=== PATIENT | male | born 1970 | race Caucasian/White ===

== ENCOUNTER → 2017-06-03 | Outpatient (REF) | payer BC ==
[2017-06-03 12:38] LABS: HEMATOCRIT 50.9 % (42.0-52.0); HEMOGLOBIN 17.5 g/dl (14.0-18.0); MEAN CORPUSCULAR HEMOGLOBIN 31.3 pg (27.0-33.0); MEAN CORPUSCULAR HGB CONC 34.4 g/dl (32.0-36.5); MEAN CORPUSCULAR VOLUME 91.1 fl (80.0-96.0); PLATELET COUNT, AUTOMATED 232 10^3/uL (150-450); RED BLOOD COUNT 5.59 10^6/uL (4.30-6.10); RED CELL DISTRIBUTION WIDTH 13.4 % (11.5-14.5); WHITE BLOOD COUNT 6.7 10^3/uL (4.0-10.0)
[2017-06-03 13:16] LABS: ALBUMIN/GLOBULIN RATIO 1.14 (1.00-1.93); ALKALINE PHOSPHATASE 95 U/L (45-117); ALT/SGPT 79 U/L (12-78); ANION GAP 5 MEQ/L (8-16); AST/SGOT 37 U/L (7-37); BILIRUBIN,TOTAL 0.9 MG/DL (0.2-1.0); BLOOD UREA NITROGEN 10 MG/DL (7-18); CALCIUM LEVEL 8.9 MG/DL (8.5-10.1); CARBON DIOXIDE LEVEL 30 MEQ/L (21-32); CHLORIDE LEVEL 104 MEQ/L (98-107); CHOLESTEROL LEVEL 261 MG/DL (<200); CHOLESTEROL RISK RATIO 4.578 (<5); GLOMERULAR FILTRATION RATE > 60.0 (>60); GLUCOSE, FASTING 115 MG/DL (70-100); HDL CHOLESTEROL 57 MG/DL (>40); LDL CHOLESTEROL 180.6 MG/DL (<100); NON-HDL-C 204 MG/DL; POTASSIUM SERUM 4.3 MEQ/L (3.5-5.1); SODIUM LEVEL 139 MEQ/L (136-145); TOTAL PROTEIN 7.5 GM/DL (6.4-8.2); TRIGLYCERIDES LEVEL 117 MG/DL (<150)
== END ==
LOC: M SFHCADAM 11:12
DX: E78.4 Other hyperlipidemia (principal); I10 Essential (primary) hypertension; F17.200 Nicotine dependence, unspecified, uncomplicated; K21.9 Gastro-esophageal reflux disease without esophagitis
CPT/HCPCS: 80053

== ENCOUNTER → 2017-10-19 | Outpatient (CLI) | payer BC ==
[~2017-10-19] MED LIST: GASTROGRAFIN SOLUTION 30ML (Q9963) As Ordered; ISOVUE-370 76% 100ML VIAL (Q9967) As Ordered
== END ==
LOC: M RAD 09:20
DX: K52.9 Noninfective gastroenteritis and colitis, unspecified (principal)
CPT/HCPCS: Q9963

== ENCOUNTER → 2017-10-19 | Outpatient (CLI) | payer BC ==
[2017-10-19 13:03] LABS: BASO % 0.3 % (0.0-1.0); EOS # 0.1 10^3/uL (0.0-0.50); EOS % 0.7 % (0.0-3.0); HEMATOCRIT 49.5 % (42.0-52.0); HEMOGLOBIN 17.4 g/dl (13.5-17.5); IMMATURE GRANULOCYTE % 0.5 % (0-3.0); LYMPH % 9.4 % (24.0-44.0); MEAN CORPUSCULAR HEMOGLOBIN 32.1 pg (27.0-33.0); MEAN CORPUSCULAR HGB CONC 35.2 g/dl (32.0-36.5); MEAN CORPUSCULAR VOLUME 91.3 fl (80.0-96.0); MONO # 0.8 10^3/uL (0.0-0.8); MONO % 7.5 % (0.0-5.0); NEUTROPHILS # 8.4 10^3/uL (1.8-7.7); NEUTROPHILS % 81.6 % (36.0-66.0); PLATELET COUNT, AUTOMATED 205 10^3/uL (150-450); RED BLOOD COUNT 5.42 10^6/uL (4.30-6.10); RED CELL DISTRIBUTION WIDTH 12.6 % (11.5-14.5); WHITE BLOOD COUNT 10.3 10^3/uL (4.0-10.0)
[2017-10-19 13:25] LABS: ALBUMIN 3.7 GM/DL (3.2-5.2); ALKALINE PHOSPHATASE 108 U/L (45-117); ALT/SGPT 49 U/L (12-78); AMYLASE 23 U/L (25-115); ANION GAP 11 MEQ/L (8-16); AST/SGOT 18 U/L (7-37); BILIRUBIN,TOTAL 0.8 MG/DL (0.2-1.0); BLOOD UREA NITROGEN 16 MG/DL (7-18); CALCIUM LEVEL 8.6 MG/DL (8.5-10.1); CARBON DIOXIDE LEVEL 24 MEQ/L (21-32); CHLORIDE LEVEL 98 MEQ/L (98-107); CREATININE FOR GFR 1.23 MG/DL (0.70-1.30); GLOMERULAR FILTRATION RATE > 60.0 (>60); GLUCOSE, FASTING 108 MG/DL (70-100); LIPASE 170 U/L (73-393); POTASSIUM SERUM 3.5 MEQ/L (3.5-5.1); SODIUM LEVEL 133 MEQ/L (136-145); TOTAL PROTEIN 7.4 GM/DL (6.4-8.2)
== END ==
LOC: M ADAMS 08:20
DX: A09 Infectious gastroenteritis and colitis, unspecified (principal); R10.9 Unspecified abdominal pain
CPT/HCPCS: 82150

== ENCOUNTER → 2019-08-02 | Outpatient (REF) | payer BC ==
[2019-08-02 10:42] LABS: HEMATOCRIT 51.5 % (42.0-52.0); HEMOGLOBIN 17.4 g/dl (13.5-17.5); MEAN CORPUSCULAR HEMOGLOBIN 30.6 pg (27.0-33.0); MEAN CORPUSCULAR HGB CONC 33.8 g/dl (32.0-36.5); MEAN CORPUSCULAR VOLUME 90.7 fl (80.0-96.0); PLATELET COUNT, AUTOMATED 228 10^3/uL (150-450); RED BLOOD COUNT 5.68 10^6/uL (4.30-6.10); WHITE BLOOD COUNT 6.8 10^3/uL (4.0-10.0)
[2019-08-02 11:16] LABS: ALBUMIN 3.9 GM/DL (3.2-5.2); ALT/SGPT 75 U/L (12-78); BILIRUBIN,TOTAL 0.9 MG/DL (0.2-1.0); BLOOD UREA NITROGEN 8 MG/DL (7-18); CALCIUM LEVEL 9.5 MG/DL (8.5-10.1); CARBON DIOXIDE LEVEL 29 MEQ/L (21-32); CHLORIDE LEVEL 103 MEQ/L (98-107); CHOLESTEROL LEVEL 271 MG/DL (<200); CHOLESTEROL RISK RATIO 6.775 (<5); CREATININE FOR GFR 0.91 MG/DL (0.70-1.30); GLOMERULAR FILTRATION RATE > 60.0 (>60); GLUCOSE, FASTING 88 MG/DL (70-100); HDL CHOLESTEROL 40 MG/DL (>40); LDL CHOLESTEROL 191 MG/DL (<100); NON-HDL-C 231 MG/DL; POTASSIUM SERUM 4.2 MEQ/L (3.5-5.1); SODIUM LEVEL 135 MEQ/L (136-145); TOTAL PROTEIN 7.8 GM/DL (6.4-8.2); TRIGLYCERIDES LEVEL 200 MG/DL (<150)
[2019-08-02 11:25] LABS: MAU/CREAT RATIO 59.1 MCG/MG (0.0-30.0)
== END ==
LOC: M SFHCADAM 08:13
PROVIDERS: ATTEND Physician Assistant
DX: L71.9 Rosacea, unspecified (principal); Z72.0 Tobacco use; I10 Essential (primary) hypertension; K21.9 Gastro-esophageal reflux disease without esophagitis; Z13.220 Encounter for screening for lipoid disorders

== ENCOUNTER → 2020-05-22 | Outpatient (REF) | payer BC, OTHER ==
[2020-05-22 12:44] LABS: HEMATOCRIT 48.2 % (42.0-52.0); MEAN CORPUSCULAR HEMOGLOBIN 31.4 pg (27.0-33.0); MEAN CORPUSCULAR HGB CONC 33.2 g/dl (32.0-36.5); MEAN CORPUSCULAR VOLUME 94.7 fl (80.0-96.0); PLATELET COUNT, AUTOMATED 264 10^3/uL (150-450); RED BLOOD COUNT 5.09 10^6/uL (4.30-6.10); WHITE BLOOD COUNT 7.2 10^3/uL (4.0-10.0)
[2020-05-22 13:45] LABS: ALT/SGPT 53 U/L (12-78); BLOOD UREA NITROGEN 15 MG/DL (7-18); CALCIUM LEVEL 9.6 MG/DL (8.5-10.1); CARBON DIOXIDE LEVEL 33 MEQ/L (21-32); CHLORIDE LEVEL 99 MEQ/L (98-107); CHOLESTEROL LEVEL 263 MG/DL (<200); CHOLESTEROL RISK RATIO 5.367 (<5); CREATININE FOR GFR 1.06 MG/DL (0.70-1.30); FREE T4 0.96 NG/DL (0.76-1.46); GLOMERULAR FILTRATION RATE > 60.0 (>60); GLUCOSE, FASTING 84 MG/DL (70-100); HDL CHOLESTEROL 49 MG/DL (>40); LDL CHOLESTEROL 186 MG/DL (<100); NON-HDL-C 214 MG/DL; POTASSIUM SERUM 3.8 MEQ/L (3.5-5.1); SODIUM LEVEL 136 MEQ/L (136-145); TOTAL PROTEIN 7.6 GM/DL (6.4-8.2); TRIGLYCERIDES LEVEL 140 MG/DL (<150)
== END ==
LOC: M SFHCADAM 07:56
PROVIDERS: ATTEND Physician Assistant
DX: E78.5 Hyperlipidemia, unspecified (principal); I10 Essential (primary) hypertension; F17.200 Nicotine dependence, unspecified, uncomplicated

== ENCOUNTER → 2020-06-01 | Outpatient (CLI) | payer SELFPAY | LOC: M LABSMTC 10:56 | PROVIDERS: ATTEND Pediatrics | DX: Z20.822 Contact with and (suspected) exposure to COVID-19 (principal) ==

== ENCOUNTER 2021-03-08 14:12 | Emergency (ER) | payer BC, OTHER ==
[~2021-03-08] VITALS: Ht 177.8 cm; Wt 104.5 kg
--- OUTSIDE RECORDS SUMMARY | 2021-03-08 14:18 | CCD ---
Author Author [facility] Organization [facility] Address Unknown Phone Unavailable Care Team Providers Care [employer] Press Set Up Operator Name Role Phone Alistair Connie Unavailable PROBLEMS Type Condition ICD9-CM Code [id number] Code Onset Dates Condition S tatus W/U Status Risk SNOMED Code Notes Problem Hyperlipidemia 272.4 Active confirmed 62025 004 Problem Other hyperlipidemia E78.4 Active confirmed 23967174 Problem Gastro-esophageal reflux disease without esophagitis K21.9 Active confirmed 947343134 Problem Hyperlipidemia, unspecified E78.5 Active confirmed 93368028 Problem Tobacco abuse 305.1 Active confirmed 316917 05 Problem Excessive drinking alcohol F10.10 Active confirmed 148320125 Problem Hypertension 401.9 Active confirmed 7941343 3 Problem Essential (primary) hypertension I10 Active conf irmed 34066839 Problem Nicotine dependence, unspecified, uncomplicated F1 7.200 Active confirmed 767420117 Problem Scalp lesion L98.9 Active confirmed 3937669 17593 Problem Rosacea L71.9 Active confirmed 589135232 ALLERGIES Allergen (clinical drug ingredient) Drug/Non Drug Allergy do cumented on EMR Reaction Allergy Type Onset Date Status amlodipine AmLODIPine Besylate([facility] Code:[address]-09) rash Tello g Allergy Active ENCOUNTERS from 1972 to 2020-12-11 Encounter Location Date Provider Diagnosis [facility] [address] [place] [address] Nov, Connie Sainz IMMUNIZATIONS No Information SOCIAL HISTORY Tobacco Use: Social History Observation Description Date Details (start date - stop date) Current Smoker Sex Assigned At : Social History Observation Description Sex Assigned At Unknown Audit Question Answer Notes Total Score: 4 Interpretation: Alcohol Education Drug and Alcohol Question Answer Notes Total Score: 0 Interpretation: No problems reported BMI Care Goal Follow-Up Question Answer Notes Above Normal BMI Follow-Up Dietary management educatio n, guidance, and counseling Tobacco Use: Question Answer Notes Are you a: current smoker 08/28/20 How many cigarettes a day do you smoke? 6-10 Are you interested in quitting? Ready to quit REASON FOR REFERRAL No Information VITAL SIGNS No information MEDICATIONS Medication SIG (Take, Route, Frequency, Duration) Notes Start Da te End Date Status Lisinopril 20 MG TAKE ONE TABLET BY MOUTH EVERY DAY for 30 Active Metrogel 1 % 1 application Externally Once a day to f alda and scalp for 30 days Jun, Not-Taking metroNIDAZOLE 0.75 % 1 application Externally Twi ce a day to affected area on face qand forehead for 30 days Jun, A ctive Azelaic Acid 20 % 1 application Externally Twice a day for 30 days Active Doxycycline Hyclate 100 MG 1 capsule Orally Once a day with food for 30 days Active Chantix Starting Month Markell 0.5 MG X 11 & 1 MG X 42 as directed Orally as directed Jun, Active Omeprazole 40 MG TAKE ONE CAPSULE BY MOUTH EVERY DAY orally Velasquez y for 30 Days Active PROCEDURES No Information RESULTS No Results REASON FOR VISIT no show 12/11/2020 MEDICAL (GENERAL) HISTORY Type Description Date Medical History Hypertension Medical History GERD Medical History Tobacco Abuse Medical History Hyperlipidemia - ASCVD Risk = 6.1% 09/16 Medical History Salmonella 09/2017 Medical History Rosacea Surgical History tonsillectomy Surgical History wisdom teeth extract X 4 Surgical History lasik, bilaterally 08/2007 Surgical History lask, right eye 10/2007 Goals Section No Information Health Concerns No Information MEDICAL EQUIPMENT No Information MENTAL STATUS No Information FUNCTIONAL STATUS No Information ASSESSMENTS No Information PLAN OF TREATMENT Medication Medication Name Sig Start Date Stop Date Lisinopril 20 MG TAKE ONE TABLET BY MOUTH EVERY DAY for 30 Doxycycline Hyclate 100 MG 1 capsule Orally Once a day with food for 30 days Azelaic Acid 20 % 1 application Externally Twice a day for 30 da ys Next Appt Details Provider Name:Brina Huang, 2020-12-23 09:15:00 AM, [address] [facility], [place], [address], Insurance Providers Payer Name Payer Address Payer Phone Insured Name Patient Relati onship to Insured Coverage Start Date Coverage End Date [facility] Drawn to [employer] CLAIM[employer] DEPT [address] [facility] [phone] ML CHOI self
--- OUTSIDE RECORDS SUMMARY | 2021-03-08 14:18 | CCD ---
Author Author [facility] Organization [facility] Address Unknown Phone Unavailable Support Name Relationship Address Phone [employer] Next Of Kin [address] [place] [address] [employer] Next Of Kin [address] [place] [address] SELF EMPLOYED Next Of Kin [address] [place] [address] [place]IN[place] [employer]OMPKINS Next Of Kin [address] [place] [address] ORTIZ TOMPKINS Next Of Kin [address] [place] [address] ORTIZ TOMPKINS ECON [address] [place] [address] Re-disclosure Warning The records that you are about to access may contain information from federally-assisted alcohol or drug abuse programs. If such information is present, then the following federally mandated warning applies: This information has been disclosed to you from records protected by federal confidentiality rules (42 CFR part 2). The federal rules prohibit you from making any further disclosure of this information unless further disclosure is expressly permitted by the written consent of the person to whom it pertains or as otherwise permitted by 42 CFR part 2. A general authorization for the release of medical or other information is NOT sufficient for this purpose. The Federal rules restrict any use of the information to criminally investigate or prosecute any alcohol or drug abuse patient.The records that you are about to access may contain highly sensitive health information, the redisclosure of which is protected by Article 27-F of the [facility] Public Health law. If you continue you may have access to information: Regarding HIV / AIDS; Provided by facilities licensed or operated by the [facility] Office of Mental Health; or Provided by the [facility] Office for People With Developmental Disabilities. If such information is present, then the following [facility] mandated warning applies: This information has been disclosed to you from confidential records which are protected by state law. State law prohibits you from making any further disclosure of this information without the specific written consent of the person to whom it pertains, or as otherwise permitted by law. Any unauthorized further disclosure in violation of state law may result in a fine or senior living sentence or both. A general authorization for the release of medical or other information is NOT sufficient authorization for further disc losure. Family History Family Member Name Family Member Gender Family Member Status Date o f Status Description Data Source(s) Unknown Unknown Problem [facility] ([facility]) Encounters Encounter Providers Location Date Indications Data Source(s ) Unknown [address] [facility] [place] [address] 12/11/2020 12:00:00 AM EDT eCW1 ([facility]) Outpatient [address] [facility] [address] 08/28/2020 12:00:00 AM EDT eCW1 ([facility]) Unknown [address] [facility] [place] [address] 08/07/2020 12:00:00 AM EDT eCW1 ([facility]) Unknown [address] [facility] [place] [address] 07/07/2020 12:00:00 AM EST eCW1 ([facility]) Outpatient [address] [facility] [place] [address] 07/03/2020 12:00:00 AM EST eCW1 ([facility]) Outpatient [address] [facility] [place] [address] 06/24/2020 12:00:00 AM EST eCW1 ([facility]) Unknown [address] [facility] [place] [address] 05/07/2020 12:00:00 AM EST eCW1 ([facility]) Unknown [address] [facility] [place] [address] 02/20/2020 12:00:00 AM EDT eCW1 ([facility]) Medications Medication Brand Name Start Date Product Form Dose Route Admi nistrative Instructions Pharmacy Instructions Status Indications Reaction Description Data Source(s) 40 mg 01/30/2021 12:00:00 AM EDT capsule,delayed release (DR/EC) 30 TAKE ONE CAPSULE BY MOUTH EVERY DAY TAKE ONE CAPSULE BY MOUTH EVERY DAY SOLD: 03/02/2021 [facility] 40 mg 01/30/2021 12:00:00 AM EDT capsule,delayed release (DR/EC) 30 TAKE ONE CAPSULE BY MOUTH EVERY DAY TAKE ONE CAPSULE BY MOUTH EVERY DAY SOLD: 02/03/2021 [facility] 20 mg 10/07/2020 12:00:00 AM EDT tablet 30 TAKE ONE TABLET BY MOUTH ONCE DAILY TAKE ONE TABLET BY MOUTH ONCE DAILY SOLD: 02/03/2021 [facility] 20 mg 10/07/2020 12:00:00 AM EDT tablet 30 TAKE ONE TABLET BY MOUTH ONCE DAILY TAKE ONE TABLET BY MOUTH ONCE DAILY SOLD: 10/08/2020 [facility] 20 mg 10/07/2020 12:00:00 AM EDT tablet 30 TAKE ONE TABLET BY MOUTH ONCE DAILY TAKE ONE TABLET BY MOUTH ONCE DAILY SOLD: 01/04/2021 [facility] 20 mg 10/07/2020 12:00:00 AM EDT tablet 30 TAKE ONE TABLET BY MOUTH ONCE DAILY TAKE ONE TABLET BY MOUTH ONCE DAILY SOLD: 12/08/2020 [facility] 20 mg 10/07/2020 12:00:00 AM EDT tablet 30 TAKE ONE TABLET BY MOUTH ONCE DAILY TAKE ONE TABLET BY MOUTH ONCE DAILY SOLD: 11/08/2020 [facility] 20 mg 10/07/2020 12:00:00 AM EDT tablet 30 TAKE ONE TABLET BY MOUTH ONCE DAILY TAKE ONE TABLET BY MOUTH ONCE DAILY SOLD: 03/02/2021 [facility] Lisinopril 20 MG Oral Tablet LISINOPRIL 09/04/2020 12:00:00 AM EDT tab let 30 TAKE ONE TABLET BY MOUTH EVERY DAY TAKE ONE TABLET BY MOUTH EVERY DAY SOLD: 09/10/2020 [facility] doxycycline hyclate 100 MG Oral Capsule DOXYCYCLINE HYCLATE 08/29/2020 12:00:00 AM EDT capsule 30 TAKE ONE CAPSULE BY MOUTH EV PHI DAY WITH FOOD TAKE ONE CAPSULE BY MOUTH EVERY DAY WITH FOOD SOLD: 09/10/2020 [facility] Azelaic Acid 20 % UNK 08/28/2020 12:00:00 AM EDT 1.0 {applic ation} active Azelaic Acid 20 % eCW1 ([facility]) doxycycline hyclate 100 MG Oral Capsule Doxycycline Hy clate 100 MG Doxycycline Hyclate 100 MG 08/28/2020 12:00:00 AM EDT 1.0 {capsule} active Doxycycline Hyclate 100 MG eCW1 ([facility]) 40 mg 08/08/2020 12:00:00 AM EDT capsule,delayed release (DR/EC) 30 TAKE ONE CAPSULE BY MOUTH EVERY DAY TAKE ONE CAPSULE BY MOUTH EVERY DAY SOLD: 01/04/2021 [facility] 40 mg 08/08/2020 12:00:00 AM EDT capsule,delayed release (DR/EC) 30 TAKE ONE CAPSULE BY MOUTH EVERY DAY TAKE ONE CAPSULE BY MOUTH EVERY DAY SOLD: 12/08/2020 [facility] 40 mg 08/08/2020 12:00:00 AM EDT capsule,delayed release (DR/EC) 30 TAKE ONE CAPSULE BY MOUTH EVERY DAY TAKE ONE CAPSULE BY MOUTH EVERY DAY SOLD: 11/08/2020 [facility] 40 mg 08/08/2020 12:00:00 AM EDT capsule,delayed release (DR/EC) 30 TAKE ONE CAPSULE BY MOUTH EVERY DAY TAKE ONE CAPSULE BY MOUTH EVERY DAY SOLD: 10/08/2020 [facility] 40 mg 08/08/2020 12:00:00 AM EDT capsule,delayed release (DR/EC) 30 TAKE ONE CAPSULE BY MOUTH EVERY DAY TAKE ONE CAPSULE BY MOUTH EVERY DAY SOLD: 08/10/2020 [facility] 40 mg 08/08/2020 12:00:00 AM EDT capsule,delayed release (DR/EC) 30 TAKE ONE CAPSULE BY MOUTH EVERY DAY TAKE ONE CAPSULE BY MOUTH EVERY DAY SOLD: 09/10/2020 [facility] Lisinopril 20 MG Oral Tablet LISINOPRIL 08/06/2020 12:00:00 AM EDT tab let 30 TAKE ONE TABLET BY MOUTH EVERY DAY TAKE ONE TABLET BY MOUTH EVERY DAY SOLD: 08/10/2020 [facility] 0.75 % 07/08/2020 12:00:00 AM EST gel 45 APPLY TO AFFECTED AREA(S) ON FACE AND FOREHEAD TWO TIMES A DAY APPLY TO AFFECTED AREA(S) ON FACE AND FO REHEAD TWO TIMES A DAY SOLD: 07/12/2020 [facility] Metronidazole 0.0075 MG/MG Vaginal Gel metroNIDAZOLE 0 .75 % metroNIDAZOLE 0.75 % 07/08/2020 12:00:00 AM EST 1.0 {application} active metroNIDAZOLE 0.75 % eCW1 ([facility]) Metronidazole 0.0075 MG/MG Vaginal Gel Metronidazole 0 .75 % Metronidazole 0.75 % 07/08/2020 12:00:00 AM EST 1.0 {application} active Metronidazole 0.75 % eCW1 ([facility]) Metronidazole 0.0075 MG/MG Vaginal Gel Metronidazole 0 .75 % Metronidazole 0.75 % 07/08/2020 12:00:00 AM EST 1.0 {application} active Metronidazole 0.75 % eCW1 ([facility]) Metronidazole 0.0075 MG/MG Vaginal Gel Metronidazole 0 .75 % Metronidazole 0.75 % 07/08/2020 12:00:00 AM EST 1.0 {application} active Metronidazole 0.75 % eCW1 ([facility]) Metronidazole 0.01 MG/MG Topical Gel [MetroGel] Metrogel 1 % Metrogel 1 % 07/03/2020 12:00:00 AM EST 1.0 {application} suspend ed Metrogel 1 % eCW1 ([facility]) Metronidazole 0.01 MG/MG Topical Gel [MetroGel] Metrogel 1 % Metrogel 1 % 07/03/2020 12:00:00 AM EST 1.0 {application} active Metrogel 1 % eCW1 ([facility]) Metronidazole 0.01 MG/MG Topical Gel [MetroGel] Metrogel 1 % Metrogel 1 % 07/03/2020 12:00:00 AM EST 1.0 {application} suspend ed Metrogel 1 % eCW1 ([facility]) Metronidazole 0.01 MG/MG Topical Gel [MetroGel] Metrogel 1 % Metrogel 1 % 07/03/2020 12:00:00 AM EST 1.0 {application} active Metrogel 1 % eCW1 ([facility]) Metronidazole 0.01 MG/MG Topical Gel [MetroGel] Metrogel 1 % Metrogel 1 % 07/03/2020 12:00:00 AM EST 1.0 {application} active Metrogel 1 % eCW1 ([facility]) 0.5 mg (11)- 1 mg (42) 06/24/2020 12:00:00 AM EST tablets,do se pack 53 TAKE BY MOUTH DIRECTED TAKE BY MOUTH DIRECTED SOLD: 07/08/2020 [facility] Chantix Starting Month Markell 0.5 MG X 11 & 1 MG X 42 Suzie ntix Starting Month Markell 0.5 MG X 11 & 1 MG X 42 06/24/2020 12:00:00 AM EST active Chantix Starting Month Markell 0.5 MG X 11 & 1 MG X 42 eCW1 ([facility]) Chantix Starting Month Markell 0.5 MG X 11 & 1 MG X 42 Suzie ntix Starting Month Markell 0.5 MG X 11 & 1 MG X 42 06/24/2020 12:00:00 AM EST active Chantix Starting Month Markell 0.5 MG X 11 & 1 MG X 42 eCW1 ([facility]) Chantix Starting Month Markell 0.5 MG X 11 & 1 MG X 42 Suzie ntix Starting Month Markell 0.5 MG X 11 & 1 MG X 42 06/24/2020 12:00:00 AM EST active Chantix Starting Month Markell 0.5 MG X 11 & 1 MG X 42 eCW1 ([facility]) Chantix Starting Month Markell 0.5 MG X 11 & 1 MG X 42 Suzie ntix Starting Month Markell 0.5 MG X 11 & 1 MG X 42 06/24/2020 12:00:00 AM EST active Chantix Starting Month Markell 0.5 MG X 11 & 1 MG X 42 eCW1 ([facility]) Chantix Starting Month Markell 0.5 MG X 11 & 1 MG X 42 Suzie ntix Starting Month Markell 0.5 MG X 11 & 1 MG X 42 06/24/2020 12:00:00 AM EST active Chantix Starting Month Markell 0.5 MG X 11 & 1 MG X 42 eCW1 ([facility]) Chantix Starting Month Markell 0.5 MG X 11 & 1 MG X 42 Suzie ntix Starting Month Markell 0.5 MG X 11 & 1 MG X 42 06/24/2020 12:00:00 AM EST active Chantix Starting Month Markell 0.5 MG X 11 & 1 MG X 42 eCW1 ([facility]) 40 mg 02/05/2020 12:00:00 AM EDT capsule,delayed release (DR/EC) 30 TAKE ONE CAPSULE BY MOUTH EVERY DAY TAKE ONE CAPSULE BY MOUTH EVERY DAY SOLD: 04/13/2020 [facility] 20 mg 02/05/2020 12:00:00 AM EDT tablet 90 TAKE ONE TABLET BY MOUTH EVERY DAY TAKE ONE TABLET BY MOUTH EVERY DAY SOLD: 03/13/2020 [facility] 20 mg 02/05/2020 12:00:00 AM EDT tablet 90 TAKE ONE TABLET BY MOUTH EVERY DAY TAKE ONE TABLET BY MOUTH EVERY DAY SOLD: 07/12/2020 [facility] 40 mg 02/05/2020 12:00:00 AM EDT capsule,delayed release (DR/EC) 30 TAKE ONE CAPSULE BY MOUTH EVERY DAY TAKE ONE CAPSULE BY MOUTH EVERY DAY SOLD: 03/13/2020 [facility] 20 mg 02/05/2020 12:00:00 AM EDT tablet 90 TAKE ONE TABLET BY MOUTH EVERY DAY TAKE ONE TABLET BY MOUTH EVERY DAY SOLD: 05/13/2020 [facility] 20 mg 02/05/2020 12:00:00 AM EDT tablet 90 TAKE ONE TABLET BY MOUTH EVERY DAY TAKE ONE TABLET BY MOUTH EVERY DAY SOLD: 06/13/2020 [facility] 40 mg 02/05/2020 12:00:00 AM EDT capsule,delayed release (DR/EC) 30 TAKE ONE CAPSULE BY MOUTH EVERY DAY TAKE ONE CAPSULE BY MOUTH EVERY DAY SOLD: 07/12/2020 [facility] 40 mg 02/05/2020 12:00:00 AM EDT capsule,delayed release (DR/EC) 30 TAKE ONE CAPSULE BY MOUTH EVERY DAY TAKE ONE CAPSULE BY MOUTH EVERY DAY SOLD: 05/13/2020 [facility] 20 mg 02/05/2020 12:00:00 AM EDT tablet 30 TAKE ONE TABLET BY MOUTH EVERY DAY TAKE ONE TABLET BY MOUTH EVERY DAY SOLD: 02/05/2020 [facility] 40 mg 02/05/2020 12:00:00 AM EDT capsule,delayed release (DR/EC) 30 TAKE ONE CAPSULE BY MOUTH EVERY DAY TAKE ONE CAPSULE BY MOUTH EVERY DAY SOLD: 06/13/2020 [facility] 20 mg 02/05/2020 12:00:00 AM EDT tablet 90 TAKE ONE TABLET BY MOUTH EVERY DAY TAKE ONE TABLET BY MOUTH EVERY DAY SOLD: 04/13/2020 [facility] 40 mg 02/05/2020 12:00:00 AM EDT capsule,delayed release (DR/EC) 30 TAKE ONE CAPSULE BY MOUTH EVERY DAY TAKE ONE CAPSULE BY MOUTH EVERY DAY SOLD: 02/05/2020 [facility] Insurance Providers Payer name Policy type / Coverage type Policy ID Covered constitution party ID Covered constitution party's relationship to hinds Policy Hinds Plan Information [employer] [place]/307 [id number] SP [id number] [employer] [place]/307 [id number] SP [id number] SELF PAY ONLY [id number] SP [id number] ID IDENTIFICATION [id number] Other Insurance [id number] [employer] [place] P[place] 302/307 [id number] SP [id number] [employer]BS B [id number] S [id number] [employer] Commercial [id number] Self [id number] [employer] Commercial [id number] Self [id number] DAMEON [id number] SP [id number] [employer] Commercial [id number] Self [id number] [employer] [place] PPO 302/307 [id number] SP [id number] [employer] Commercial [id number] Self [id number] ID IDENTIFICATION [id number] Other Insurance [id number] BS Exchange(Epo,Hmo,Ppo) Commercial [id number] Self [employer] Commercial [id number] Self [employer] Commercial [id number] Self [id number] Problems, Conditions, and Diagnoses Code Display Name Description Problem Type Effective Dates Data Source(s) F10.10 [id number] Excessive drinking alcohol Problem 12:00:00 AM EST eCW1 ([facility]) E78.5 Hyperlipidemia Hyperlipidemia, unspecified Problem 05/07/2020 12:00:00 AM EST eCW1 ([facility]) Surgeries/Procedures No Information Results ID Date Data Source [id number] 06/01/2020 12:00:00 AM EST [facility] Name Value Range Interpretation Code Description Data Yuly rce(s) Supporting Document(s) SARS-CoV-2 (COVID-19) RNA [Presence] in Respiratory specimen by JENARO with probe detection Not Detected [facility] This lab was ordered by [facility] and reported by [employer] Procedure Social History Code Duration Value Status Description Data Source(s ) Smoking 08/28/2020 12:00:00 AM EDT Current Smoker completed Curre nt Smoker eCW1 ([facility]) Smoking 08/28/2020 12:00:00 AM EDT Current Smoker completed Curre nt Smoker eCW1 ([facility]) Smoking 07/03/2020 12:00:00 AM EST Current Smoker completed Curre nt Smoker eCW1 ([facility]) Smoking 07/03/2020 12:00:00 AM EST Current Smoker completed Curre nt Smoker eCW1 ([facility]) Smoking 07/03/2020 12:00:00 AM EST Current Smoker completed Curre nt Smoker eCW1 ([facility]) Smoking 06/24/2020 12:00:00 AM EST Current Smoker completed Curre nt Smoker eCW1 ([facility]) Vital Signs ID Date Data Source UNK Name Value Range Interpretation Code Description Data Source(s) Systolic blood pressure 142 mm[Hg] 142 mm[Hg] e CW1 ([facility]) Diastolic blood pressure 84 mm[Hg] 84 mm[Hg] eCW1 ([facility]) Body weight 230.6 [lb_av] 230.6 [lb_av] eCW1 ([facility]) Body height 70 [in_i] 70 [in_i] eCW1 ([facility]) Body mass index (BMI) [Ratio] 33.08 kg/m2 33.08 kg/m2 W1 ([facility]) Body weight 233.4 [lb_av] 233.4 [lb_av] eCW1 ([facility]) Body height 70 [in_i] 70 [in_i] eCW1 ([facility]) Heart rate 94 /min 94 /min eCW1 ([facility]) Respiratory rate 16 /min 16 /min eCW1 ([facility]) Body temperature 98.9 [degF] 98.9 [degF] eCW1 ( [facility]) Systolic blood pressure 132 mm[Hg] 132 mm[Hg] e CW1 ([facility]) Diastolic blood pressure 82 mm[Hg] 82 mm[Hg] eCW1 ([facility]) Body mass index (BMI) [Ratio] 33.49 kg/m2 33.49 kg/m2 eCW1 ([facility]) Body weight 233 [lb_av] 233 [lb_av] eCW1 ([facility]) Body height 70 [in_i] 70 [in_i] eCW1 ([facility]) Body mass index (BMI) [Ratio] 33.43 kg/m2 33.43 kg/m2 eCW1 ([facility]) Heart rate 106 /min 106 /min eCW1 ([facility]) Respiratory rate 16 /min 16 /min eCW1 ([facility]) Body temperature 96.3 [degF] 96.3 [degF] eCW1 ( [facility]) Systolic blood pressure 142 mm[Hg] 142 mm[Hg] e CW1 ([facility]) Diastolic blood pressure 90 mm[Hg] 90 mm[Hg] eCW1 ([facility]) Patient Treatment Plan of Care Planned Activity Planned Date Details Description Data Source (s) Azelaic Acid 20 % 08/28/2020 12:00:00 AM EDT eCW1 ([facility]) doxycycline hyclate 100 MG Oral Capsule 08/28/2020 12:00:00 AM EDT eCW1 ([facility]) Metronidazole 0.0075 MG/MG Vaginal Gel 07/08/2020 12:00:00 AM EST eCW1 ([facility]) Metronidazole 0.0075 MG/MG Vaginal Gel 07/08/2020 12:00:00 AM EST eCW1 ([facility]) Metronidazole 0.01 MG/MG Topical Gel [MetroGel] 07/03/2020 12:00:00 AM EST eCW1 ([facility]) Metronidazole 0.01 MG/MG Topical Gel [MetroGel] 07/03/2020 12:00:00 AM EST eCW1 ([facility]) Metronidazole 0.01 MG/MG Topical Gel [MetroGel] 07/03/2020 12:00:00 AM EST eCW1 ([facility]) Chantix Starting Month Markell 0.5 MG X 11 & 1 MG X 42 06/24/2020 12 :00:00 AM EST eCW1 ([facility]) Chantix Starting Month Markell 0.5 MG X 11 & 1 MG X 42 06/24/2020 12 :00:00 AM EST eCW1 ([facility]) Chantix Starting Month Markell 0.5 MG X 11 & 1 MG X 42 06/24/2020 12 :00:00 AM EST eCW1 ([facility]) Chantix Starting Month Markell 0.5 MG X 11 & 1 MG X 42 06/24/2020 12 :00:00 AM EST eCW1 ([facility])
[2021-03-08] MEDS ORDERED: LISI20TA33 PO (14:34)
[2021-03-08] MEDS ORDERED: OMEP-221 PO (14:34)
--- NOTE | 2021-03-08 14:54 | REP ---
INDICATION: trauma, pain, swelling. COMPARISON: None. TECHNIQUE: Four views FINDINGS: The radial head and capitellum align normally on all views. Shows no radial head fracture. Medial and lateral epicondyles were unremarkable and without abnormal calcification. No elbow joint effusion on the lateral view. There is soft tissue swelling over the olecranon that may reflect some olecranon bursitis. A small phlebolith overlying the triceps well above the joint is noted. Distal humerus without fracture. Olecranon and proximal ulna were normal. IMPRESSION: 1. Soft tissue swelling about the elbow that may reflect some traumatic bursitis. I do not see any definite fracture, joint effusion, avulsion fracture nor other acute finding. <Electronically signed by Adi Dubon > 03/08/21 [id number]
--- OUTSIDE RECORDS SUMMARY | 2021-03-08 15:04 | CCD ---
Author Author [facility] Organization [facility] Address Unknown Phone Unavailable Support Name Relationship Address Phone [employer] Next Of Kin [address] [place] [address] SPE[place]RITE Next Of Kin [address] [place] [address] SELF EMPLOYED Next Of Kin [address] [place] [address] TRINIDAD TOMPKINS Next Of Kin [address] [place] [address] ORTIZ TOMPKINS Next Of Kin [address] [place] [address] ORTIZ TOMPKINS [address] [place] [address] Re-disclosure Warning The records that you are [...] is protected by Article 27-F of the [facility] Public Health law. If you continue you may have access to information: Regarding HIV / AIDS; Provided by facilities licensed or operated by the [facility] Office of Mental Health; or Provided by the [facility] Office for People With Developmental Disabilities. If such information is present, then the following [place] State mandated warning applies: This information has been [...] law may result in a fine or intermediate sentence or both. A general authorization for the release of medical or other information is NOT sufficient authorization for further disc losure. Family History Family Member Name Family Member Gender Family Member Status Date o f Status Description Data Source(s) Unknown Unknown Problem [facility] ([facility]) Encounters Encounter Providers Location Date Indications Data Source(s ) Unknown [address] [facility] [place] [id number] 12/11/2020 12:00:00 AM EDT eCW1 ([facility]) Outpatient [address] [facility] [id number] 08/28/2020 12:00:00 AM EDT eCW1 ([facility]) Unknown [address] [facility] [place] [id number] 08/07/2020 12:00:00 AM EDT eCW1 ([facility]) Unknown [address] [facility] [id number] 07/07/2020 12:00:00 AM EST eCW1 ([facility]) Outpatient [address] [facility] [place] [id number] 07/03/2020 12:00:00 AM EST eCW1 [facility] Outpatient [address] [facility] [address] 06/24/2020 12:00:00 AM EST eCW1 ([facility]) Unknown [address] [facility] [place] [address] 05/07/2020 12:00:00 AM EST eCW1 ([facility]) Unknown [address] [facility] [place] [id number] 02/20/2020 12:00:00 AM EDT eCW1 ([facility]) Medications Medication Brand Name Start Date Product [...] ation} active Azelaic Acid 20 % eCW1 ([facility]) doxycycline hyclate 100 MG Oral Capsule Doxycycline Hy clate 100 MG Doxycycline Hyclate 100 MG 08/28/2020 12:00:00 AM EDT 1.0 {capsule} active Doxycycline Hyclate 100 MG eCW1 ([facility]) 40 mg 08/08/2020 12:00:00 AM EDT capsule,delayed [...] REHEAD TWO TIMES A DAY SOLD: 07/12/2020 [facility] Metronidazole 0.0075 MG/MG Vaginal Gel metroNIDAZOLE 0 .75 % metroNIDAZOLE 0.75 % 07/08/2020 12:00:00 AM EST 1.0 {application} active metroNIDAZOLE 0.75 % eCW1 ([facility]) Metronidazole 0.0075 MG/MG Vaginal Gel Metronidazole 0 .75 % Metronidazole 0.75 % 07/08/2020 12:00:00 AM EST 1.0 {application} active Metronidazole 0.75 % eCW1 ([facility]) Metronidazole 0.0075 MG/MG Vaginal Gel Metronidazole 0 .75 % Metronidazole 0.75 % 07/08/2020 12:00:00 AM EST 1.0 {application} active Metronidazole 0.75 % eCW1 ([facility]) Metronidazole 0.0075 MG/MG Vaginal Gel Metronidazole 0 .75 % Metronidazole 0.75 % 07/08/2020 12:00:00 AM EST 1.0 {application} active Metronidazole 0.75 % eCW1 ([facility]) Metronidazole 0.01 MG/MG Topical Gel [MetroGel] Metrogel 1 % Metrogel 1 % 07/03/2020 12:00:00 AM EST 1.0 {application} suspend ed Metrogel 1 % eCW1 ([facility]) Metronidazole 0.01 MG/MG Topical Gel [MetroGel] Metrogel 1 % Metrogel 1 % 07/03/2020 12:00:00 AM EST 1.0 {application} active Metrogel 1 % eCW1 ([facility]) Metronidazole 0.01 MG/MG Topical Gel [MetroGel] Metrogel 1 % Metrogel 1 % 07/03/2020 12:00:00 AM EST 1.0 {application} suspend ed Metrogel 1 % eCW1 ([facility]) Metronidazole 0.01 MG/MG Topical Gel [MetroGel] Metrogel 1 % Metrogel 1 % 07/03/2020 12:00:00 AM EST 1.0 {application} active Metrogel 1 % eCW1 ([facility]) Metronidazole 0.01 MG/MG Topical Gel [MetroGel] Metrogel 1 % Metrogel 1 % 07/03/2020 12:00:00 AM EST 1.0 {application} active Metrogel 1 % eCW1 ([facility]) 0.5 mg (11)- 1 mg (42) 06/24/2020 [...] 11 & 1 MG X 42 eCW1 ([facility]) Chantix Starting Month Markell 0.5 MG X 11 & 1 MG X 42 Suzie ntix Starting Month Markell 0.5 MG X 11 & 1 MG X 42 06/24/2020 12:00:00 AM EST active Chantix Starting Month Markell 0.5 MG X 11 & 1 MG X 42 eCW1 ([facility]) Chantix Starting Month Markell 0.5 MG X 11 & 1 MG X 42 Suzie ntix Starting Month Markell 0.5 MG X 11 & 1 MG X 42 06/24/2020 12:00:00 AM EST active Chantix Starting Month Markell 0.5 MG X 11 & 1 MG X 42 eCW1 ([facility]) Chantix Starting Month Markell 0.5 MG X 11 & 1 MG X 42 Suzie ntix Starting Month Markell 0.5 MG X 11 & 1 MG X 42 06/24/2020 12:00:00 AM EST active Chantix Starting Month Markell 0.5 MG X 11 & 1 MG X 42 eCW1 ([facility]) Chantix Starting Month Markell 0.5 MG X 11 & 1 MG X 42 Suzie ntix Starting Month Markell 0.5 MG X 11 & 1 MG X 42 06/24/2020 12:00:00 AM EST active Chantix Starting Month Markell 0.5 MG X 11 & 1 MG X 42 eCW1 ([facility]) Chantix Starting Month Markell 0.5 MG X 11 & 1 MG X 42 Suzie ntix Starting Month Markell 0.5 MG X 11 & 1 MG X 42 06/24/2020 12:00:00 AM EST active Chantix Starting Month Markell 0.5 MG X 11 & 1 MG X 42 eCW1 ([facility]) 40 mg 02/05/2020 12:00:00 AM EDT capsule,delayed [...] Plan Information [employer] [place] PPO 302/307 [id number] SP [id number] [employer] [place] PPO 302/307 [id number] SP [id number] SELF PAY ONLY [id number] SP [id number] ID IDENTIFICATION [id number] Other Insurance .[id number] [employer] [place] PPO 302/307 [id number] SP [id number] [employer]BS B [id number] S [id number] [employer] Commercial [id number] Self [id number] [employer] Commercial [id number] Self [id number] DAMEON [id number] SP [id number] [employer] Commercial [id number] Self [id number] [employer] [place] PPO 302/307 [id number] SP [id number] [employer] Commercial [id number] Self [id number] ID IDENTIFICATION [id number] Other Insurance [id number] BS Exchange(Epo,Hmo,Ppo) Commercial [id number] Self [employer] Commercial [id number] Self [employer] Commercial [id number] Self [id number] Problems, Conditions, and Diagnoses Code Display Name Description Problem Type Effective Dates Data Source(s) F10.10 [id number] Excessive drinking alcohol Problem 12:00:00 AM EST eCW1 ([facility]) E78.5 Hyperlipidemia Hyperlipidemia, unspecified Problem 05/07/2020 12:00:00 AM EST eCW1 ([facility]) Surgeries/Procedures No Information Results ID Date Data Source [id number] 06/01/2020 12:00:00 AM EST [facility] Name Value Range Interpretation Code Description Data Yuly rce(s) Supporting Document(s) SARS-CoV-2 (COVID-19) RNA [Presence] in Respiratory specimen by JENARO with probe detection Not Detected [facility] This lab was ordered by [facility] and reported by [employer] Procedure Social History Code Duration Value Status Description Data Source(s ) Smoking 08/28/2020 12:00:00 AM EDT Current Smoker completed Curre nt Smoker eCW1 ([facility]) Smoking 08/28/2020 12:00:00 AM EDT Current Smoker completed Curre nt Smoker eCW1 ([facility]) Smoking 07/03/2020 12:00:00 AM EST Current Smoker completed Curre nt Smoker eCW1 ([facility]) Smoking 07/03/2020 12:00:00 AM EST Current Smoker completed Curre nt Smoker eCW1 ([facility]) Smoking 07/03/2020 12:00:00 AM EST Current Smoker completed Curre nt Smoker eCW1 ([facility]) Smoking 06/24/2020 12:00:00 AM EST Current Smoker completed Curre nt Smoker eCW1 ([facility]) Vital Signs ID Date Data Source UNK Name Value Range Interpretation Code Description Data Source(s) Systolic blood pressure 142 mm[Hg] 142 mm[Hg] e CW1 ([facility]) Body weight 230.6 [lb_av] 230.6 [lb_av] eCW1 ([facility]) Body height 70 [in_i] 70 [in_i] eCW1 ([facility]) Body mass index (BMI) [Ratio] 33.08 kg/m2 33.08 kg/m2 eCW1 ([facility]) Diastolic blood pressure 84 mm[Hg] 84 mm[Hg] eCW1 ([facility]) Body weight 233.4 [lb_av] 233.4 [lb_av] eCW1 ([facility]) Body height 70 [in_i] 70 [in_i] eCW1 ([facility]) Heart rate 94 /min 94 /min eCW1 ([facility]) Body mass index (BMI) [Ratio] 33.49 kg/m2 33.49 kg/m2 eCW1 ([facility]) Respiratory rate 16 /min 16 /min eCW1 ([facility]) Body temperature 98.9 [degF] 98.9 [degF] eCW1 ( [facility]) Systolic blood pressure 132 mm[Hg] 132 mm[Hg] e CW1 ([facility]) Diastolic blood pressure 82 mm[Hg] 82 mm[Hg] eCW1 ([facility]) Body weight 233 [lb_av] 233 [lb_av] eCW1 ([facility]) Body height 70 [in_i] 70 [in_i] eCW1 ([facility]) Body mass index (BMI) [Ratio] 33.43 kg/m2 33.43 kg/m2 eCW1 ([facility]) Heart rate 106 /min 106 /min eCW1 ([facility]) Respiratory rate 16 /min 16 /min eCW1 ([facility]) Body temperature 96.3 [degF] 96.3 [degF] eCW1 ( [facility]) Systolic blood pressure 142 mm[Hg] 142 mm[Hg] e CW1 ([facility]) Diastolic blood pressure 90 mm[Hg] 90 mm[Hg] eCW1 ([facility]) Patient Treatment Plan of Care Planned Activity Planned Date Details Description Data Source (s) Azelaic Acid 20 % 08/28/2020 12:00:00 AM EDT eCW1 ([facility]) doxycycline hyclate 100 MG Oral Capsule 08/28/2020 12:00:00 AM EDT eCW1 ([facility]) Metronidazole 0.0075 MG/MG Vaginal Gel 07/08/2020 12:00:00 AM EST eCW1 ([facility]) Metronidazole 0.0075 MG/MG Vaginal Gel 07/08/2020 12:00:00 AM EST eCW1 ([facility]) Metronidazole 0.01 MG/MG Topical Gel [MetroGel] 07/03/2020 12:00:00 AM EST eCW1 ([facility]) Metronidazole 0.01 MG/MG Topical Gel [MetroGel] 07/03/2020 12:00:00 AM EST eCW1 ([facility]) Metronidazole 0.01 MG/MG Topical Gel [MetroGel] 07/03/2020 12:00:00 AM EST eCW1 ([facility]) Chantix Starting Month Markell 0.5 MG X 11 & 1 MG X 42 06/24/2020 12 :00:00 AM EST eCW1 ([facility]) Chantix Starting Month Markell 0.5 MG X 11 & 1 MG X 42 06/24/2020 12 :00:00 AM EST eCW1 ([facility]) Chantix Starting Month Markell 0.5 MG X 11 & 1 MG X 42 06/24/2020 12 :00:00 AM EST eCW1 ([facility]) Chantix Starting Month Markell 0.5 MG X 11 & 1 MG X 42 06/24/2020 12 :00:00 AM EST eCW1 ([facility])
[2021-03-08 15:25] VITALS: BP 142/92
== END 2021-03-08 15:30 | disposition home or self-care (01) ==
LOC: M ED 14:12
DX: M70.21 Olecranon bursitis, right elbow (principal); Y92.099 Unspecified place in other non-institutional residence as the place of occurrence of the external cause; Y93.9 Activity, unspecified; Y99.9 Unspecified external cause status; I10 Essential (primary) hypertension; F17.200 Nicotine dependence, unspecified, uncomplicated

== ENCOUNTER → 2021-03-11 | Outpatient (CLI) | payer BC, OTHER ==
[~2021-03-11] MED LIST changes: -GASTROGRAFIN SOLUTION 30ML (Q9963) As Ordered; -ISOVUE-370 76% 100ML VIAL (Q9967) As Ordered; +LISI20TA33 PO; +OMEP-221 PO
== END ==
LOC: M LABSMTC 10:51
PROVIDERS: ATTEND Anesthesiology
DX: Z01.812 Encounter for preprocedural laboratory examination (principal); Z20.822 Contact with and (suspected) exposure to COVID-19

== ENCOUNTER → 2021-03-11 | Outpatient (REF) | payer OTHER ==
[2021-03-11 17:52] LABS: HEMATOCRIT 51.4 % (42.0-52.0); HEMOGLOBIN 16.9 g/dl (13.5-17.5); MEAN CORPUSCULAR HEMOGLOBIN 30.8 pg (27.0-33.0); MEAN CORPUSCULAR HGB CONC 32.9 g/dl (32.0-36.5); MEAN CORPUSCULAR VOLUME 93.8 fl (80.0-96.0); PLATELET COUNT, AUTOMATED 287 10^3/uL (150-450); RED BLOOD COUNT 5.48 10^6/uL (4.30-6.10); WHITE BLOOD COUNT 9.3 10^3/uL (4.0-10.0)
[2021-03-11 18:18] LABS: ALBUMIN 3.6 GM/DL (3.2-5.2); ALT/SGPT 34 U/L (12-78); BILIRUBIN,TOTAL 0.6 MG/DL (0.2-1.0); BLOOD UREA NITROGEN 16 MG/DL (7-18); CALCIUM LEVEL 9.6 MG/DL (8.5-10.1); CARBON DIOXIDE LEVEL 27 MEQ/L (21-32); CHLORIDE LEVEL 104 MEQ/L (98-107); CHOLESTEROL LEVEL 271 MG/DL (<200); CHOLESTEROL RISK RATIO 5.113 (<5); CREATININE FOR GFR 1.08 MG/DL (0.70-1.30); GLOMERULAR FILTRATION RATE > 60.0 (>60); GLUCOSE, FASTING 102 MG/DL (70-100); HDL CHOLESTEROL 53 MG/DL (>40); LDL CHOLESTEROL 165 MG/DL (<100); NON-HDL-C 218 MG/DL; POTASSIUM SERUM 4.1 MEQ/L (3.5-5.1); SODIUM LEVEL 138 MEQ/L (136-145); TOTAL PROTEIN 7.3 GM/DL (6.4-8.2); TRIGLYCERIDES LEVEL 267 MG/DL (<150)
== END ==
LOC: M SFHCADAM 15:15
PROVIDERS: ATTEND Family Medicine
DX: Z01.812 Encounter for preprocedural laboratory examination (principal); I10 Essential (primary) hypertension; E78.49 Other hyperlipidemia

== ENCOUNTER → 2021-03-11 | Outpatient (CLI) | payer BC, OTHER ==
--- NOTE | 2021-03-11 17:47 | REP ---
INDICATION: EVAL FOR LT DISTAL TRICEPS RUPTURE. COMPARISON: Radiographs 03/08/2021. TECHNIQUE: Real-time sonographic evaluation of left distal triceps tendon performed. FINDINGS: There is heterogeneous increased echotexture involving the distal left triceps tendon, with associated complex fluid at that location. The tendon appears discontinuous. IMPRESSION: Sonographic findings compatible with rupture of the distal left triceps tendon. This may be a confirmed with MRI if the patient is able. <Electronically signed by Olman Orozco > 03/11/21 [id number]
== END ==
LOC: M RAD 13:14
PROVIDERS: ATTEND Orthopaedic Surgery
DX: S46.392A Other injury of muscle, fascia and tendon of triceps, left arm, initial encounter (principal); X58.XXXA Exposure to other specified factors, initial encounter; Y92.9 Unspecified place or not applicable; Y93.9 Activity, unspecified; Y99.9 Unspecified external cause status

== ENCOUNTER 2021-03-13 14:04 | Day surgery (SDC) | payer OTHER ==
[~2021-03-13] VITALS: Ht 177.8 cm; Wt 93.9 kg
[~2021-03-13 14:04] MED LIST changes: +LR 1,000 ML IV ONE
--- OUTSIDE RECORDS SUMMARY | 2021-03-13 14:08 | CCD ---
Author Author [facility] Organization [facility] Address Unknown Phone Unavailable Support Name Relationship Address Phone [employer] Next Of Kin [address] [place] [address] SPEC-RITE Next Of Kin [address] [place] [address] SELF EMPLOYED Next Of Kin [address] [place] [address] TRINIDAD TOMPKINS Next Of Kin [address] [place] [address] ORTIZ TOMPKINS Next Of Kin [address] [place] [address] ORTIZ TOMPKINS [address] [place] [address] Re-disclosure Warning The records that you are [...] is protected by Article 27-F of the [facility] Public Health law. If you continue you may have access to information: Regarding HIV / AIDS; Provided by facilities licensed or operated by the [facility] Office of Mental Health; or Provided by the [facility] Office for People With Developmental Disabilities. If such information is present, then the following [place] State mandated warning applies: This information has [...] may result in a fine or senior care sentence or both. A general authorization for the release of medical or other information is NOT sufficient authorization for further disc losure. Family History Family Member Name Family Member Gender Family Member Status Date o f Status Description Data Source(s) Unknown Unknown Problem MEDENT ([facility]) Encounters Encounter Providers Location Date Indications Data Source(s ) Unknown [address] [facility] [place] [address] 12/11/2020 12:00:00 AM EDT eCW1 ([facility]) Outpatient [address] [facility] [id number] 08/28/2020 12:00:00 AM EDT eCW1 ([facility]) Unknown [address] [facility] [place] [address] 08/07/2020 12:00:00 AM EDT eCW1 ([facility]) Unknown [address] [facility] [place] [address] 07/07/2020 12:00:00 AM EST eCW1 ([facility]) Outpatient [address] [facility] [place] [address] 07/03/2020 12:00:00 AM EST eCW1 ([facility] Outpatient [address] [facility] [place] [address] 06/24/2020 12:00:00 AM EST eCW1 ([facility]) Unknown [address] [facility] [place] [address] 05/07/2020 12:00:00 AM EST eCW1 ([facility]) Unknown [address] [facility] [place] [address] 02/20/2020 12:00:00 AM EDT eCW1 ([facility]) Medications Medication Brand Name Start Date Product [...] ation} active Azelaic Acid 20 % eCW1 ([facility]) doxycycline hyclate 100 MG Oral Capsule Doxycycline Hy clate 100 MG Doxycycline Hyclate 100 MG 08/28/2020 12:00:00 AM EDT 1.0 {capsule} active Doxycycline Hyclate 100 MG eCW1 ([facility]) 40 mg 08/08/2020 12:00:00 AM EDT capsule,delayed [...] 1.0 {application} active metroNIDAZOLE 0.75 % eCW1 ([facility]) Metronidazole 0.0075 MG/MG Vaginal Gel Metronidazole 0 .75 % Metronidazole 0.75 % 07/08/2020 12:00:00 AM EST 1.0 {application} active Metronidazole 0.75 % eCW1 ([facility]) Metronidazole 0.0075 MG/MG Vaginal Gel Metronidazole 0 .75 % Metronidazole 0.75 % 07/08/2020 12:00:00 AM EST 1.0 {application} active Metronidazole 0.75 % eCW1 ([facility]) Metronidazole 0.0075 MG/MG Vaginal Gel Metronidazole 0 .75 % Metronidazole 0.75 % 07/08/2020 12:00:00 AM EST 1.0 {application} active Metronidazole 0.75 % eCW1 ([facility]) Metronidazole 0.01 MG/MG Topical Gel [MetroGel] Metrogel 1 % Metrogel 1 % 07/03/2020 12:00:00 AM EST 1.0 {application} suspend ed Metrogel 1 % eCW1 ([facility]) Metronidazole 0.01 MG/MG Topical Gel [MetroGel] Metrogel 1 % Metrogel 1 % 07/03/2020 12:00:00 AM EST 1.0 {application} active Metrogel 1 % eCW1 ([facility]) Metronidazole 0.01 MG/MG Topical Gel [MetroGel] Metrogel 1 % Metrogel 1 % 07/03/2020 12:00:00 AM EST 1.0 {application} suspend ed Metrogel 1 % eCW1 ([facility]) Metronidazole 0.01 MG/MG Topical Gel [MetroGel] Metrogel 1 % Metrogel 1 % 07/03/2020 12:00:00 AM EST 1.0 {application} active Metrogel 1 % eCW1 ([facility]) Metronidazole 0.01 MG/MG Topical Gel [MetroGel] Metrogel 1 % Metrogel 1 % 07/03/2020 12:00:00 AM EST 1.0 {application} active Metrogel 1 % eCW1 ([facility]) 0.5 mg (11)- 1 mg (42) 06/24/2020 [...] 11 & 1 MG X 42 eCW1 ([facility]) Chantix Starting Month Markell 0.5 MG X 11 & 1 MG X 42 Suzie ntix Starting Month Markell 0.5 MG X 11 & 1 MG X 42 06/24/2020 12:00:00 AM EST active Chantix Starting Month Markell 0.5 MG X 11 & 1 MG X 42 eCW1 ([facility]) Chantix Starting Month Markell 0.5 MG X 11 & 1 MG X 42 Suzie ntix Starting Month Markell 0.5 MG X 11 & 1 MG X 42 06/24/2020 12:00:00 AM EST active Chantix Starting Month Markell 0.5 MG X 11 & 1 MG X 42 eCW1 ([facility]) Chantix Starting Month Markell 0.5 MG X 11 & 1 MG X 42 Suzie ntix Starting Month Markell 0.5 MG X 11 & 1 MG X 42 06/24/2020 12:00:00 AM EST active Chantix Starting Month Markell 0.5 MG X 11 & 1 MG X 42 eCW1 ([facility]) Chantix Starting Month Markell 0.5 MG X 11 & 1 MG X 42 Suzie ntix Starting Month Markell 0.5 MG X 11 & 1 MG X 42 06/24/2020 12:00:00 AM EST active Chantix Starting Month Markell 0.5 MG X 11 & 1 MG X 42 eCW1 ([facility]) Chantix Starting Month Markell 0.5 MG X 11 & 1 MG X 42 Suzie ntix Starting Month Markell 0.5 MG X 11 & 1 MG X 42 06/24/2020 12:00:00 AM EST active Chantix Starting Month Markell 0.5 MG X 11 & 1 MG X 42 eCW1 ([facility]) 40 mg 02/05/2020 12:00:00 AM EDT capsule,delayed release (DR/EC) 30 TAKE ONE CAPSULE BY MOUTH EVERY DAY TAKE ONE CAPSULE BY MOUTH EVERY DAY SOLD: 04/13/2020 [facility] 20 mg 02/05/2020 12:00:00 AM EDT [...] type / Coverage type Policy ID Covered green party ID Covered green party's relationship to hinds Policy Hinds Plan Information [employer] [place]/307 [id number] SP [id number] [place] [place]/307 [id number] SP [id number] SELF PAY ONLY [id number] SP [id number] ID IDENTIFICATION [id number] Other Insurance .[id number] [employer] [place] P[place] 302/307 [id number] SP [id number] [employer]CE[employer] BCBS B [id number] S [id number] BCBS/[employer] Commercial [id number] Self [id number] [employer] Commercial [id number] Self [id number] DAMEON [id number] SP [id number] BC[employer] Commercial [id number] Self [id number] [place] [place] 302/307 [id number] SP [id number] BC[employer] Commercial [id number] Self [id number] ID IDENTIFICATION [id number] Other Insurance [id number] BS Exchange(Epo,Hmo,Ppo) Commercial [id number] Self BC[employer] Commercial [id number] Self BC[employer] Commercial [id number] Self [id number] Problems, Conditions, and Diagnoses Code Display Name Description Problem Type Effective Dates Data Source(s) F10.10 [id number] Excessive drinking alcohol Problem 12:00:00 AM EST eCW1 ([facility]) E78.5 Hyperlipidemia Hyperlipidemia, unspecified Problem 05/07/2020 12:00:00 AM EST eCW1 ([facility]) Surgeries/Procedures No Information Results ID Date Data Source [id number] 06/01/2020 12:00:00 AM EST [facility] Name Value Range Interpretation Code Description Data Yuly rce(s) Supporting Document(s) SARS-CoV-2 (COVID-19) RNA [Presence] in Respiratory specimen by JENARO with probe detection Not Detected [facility] This lab was ordered by [facility] and reported by [employer] Procedure Social History Code Duration Value Status Description Data Source(s ) Smoking 08/28/2020 12:00:00 AM EDT Current Smoker completed Curre nt Smoker eCW1 ([facility]) Smoking 08/28/2020 12:00:00 AM EDT Current Smoker completed Curre nt Smoker eCW1 ([facility]) Smoking 07/03/2020 12:00:00 AM EST Current Smoker completed Curre nt Smoker eCW1 ([facility]) Smoking 07/03/2020 12:00:00 AM EST Current Smoker completed Curre nt Smoker eCW1 ([facility]) Smoking 07/03/2020 12:00:00 AM EST Current Smoker completed Curre nt Smoker eCW1 ([facility]) Smoking 06/24/2020 12:00:00 AM EST Current Smoker completed Curre nt Smoker eCW1 ([facility]) Vital Signs ID Date Data Source UNK Name Value Range Interpretation Code Description Data Source(s) Body weight 230.6 [lb_av] 230.6 [lb_av] eCW1 ([facility]) Body height 70 [in_i] 70 [in_i] eCW1 ([facility]) Body mass index (BMI) [Ratio] 33.08 kg/m2 33.08 kg/m2 eCW1 ([facility]) Systolic blood pressure 142 mm[Hg] 142 mm[Hg] e CW1 ([facility]) Diastolic blood pressure 84 mm[Hg] 84 mm[Hg] eCW1 ([facility]) Heart rate 94 /min 94 /min eCW1 ([facility]) Body weight 233.4 [lb_av] 233.4 [lb_av] eCW1 ([facility]) Body height 70 [in_i] 70 [in_i] eCW1 ([facility]) Body mass index (BMI) [Ratio] 33.49 kg/m2 33.49 kg/m2 eCW1 ([facility]) Respiratory rate 16 /min 16 /min eCW1 ([facility]) Body temperature 98.9 [degF] 98.9 [degF] eCW1 ( [facility]) Systolic blood pressure 132 mm[Hg] 132 mm[Hg] e CW1 ([facility]) Diastolic blood pressure 82 mm[Hg] 82 mm[Hg] eCW1 ([facility]) Body height 70 [in_i] 70 [in_i] eCW1 ([facility]) Body weight 233 [lb_av] 233 [lb_av] eCW1 ([facility]) Diastolic blood pressure 90 mm[Hg] 90 mm[Hg] eCW1 ([facility]) Body mass index (BMI) [Ratio] 33.43 kg/m2 33.43 kg/m2 eCW1 ([facility]) Heart rate 106 /min 106 /min eCW1 ([facility]) Respiratory rate 16 /min 16 /min eCW1 ([facility]) Body temperature 96.3 [degF] 96.3 [degF] eCW1 ( [facility]) Systolic blood pressure 142 mm[Hg] 142 mm[Hg] e CW1 ([facility]) Patient Treatment Plan of Care Planned Activity Planned Date Details Description Data Source (s) Azelaic Acid 20 % 08/28/2020 12:00:00 AM EDT eCW1 ([facility]) doxycycline hyclate 100 MG Oral Capsule 08/28/2020 12:00:00 AM EDT eCW1 ([facility]) Metronidazole 0.0075 MG/MG Vaginal Gel 07/08/2020 12:00:00 AM EST eCW1 ([facility]) Metronidazole 0.0075 MG/MG Vaginal Gel 07/08/2020 12:00:00 AM EST eCW1 ([facility]) Metronidazole 0.01 MG/MG Topical Gel [MetroGel] 07/03/2020 12:00:00 AM EST eCW1 ([facility]) Metronidazole 0.01 MG/MG Topical Gel [MetroGel] 07/03/2020 12:00:00 AM EST eCW1 ([facility]) Metronidazole 0.01 MG/MG Topical Gel [MetroGel] 07/03/2020 12:00:00 AM EST eCW1 ([facility]) Chantix Starting Month Markell 0.5 MG X 11 & 1 MG X 42 06/24/2020 12 :00:00 AM EST eCW1 ([facility]) Chantix Starting Month Markell 0.5 MG X 11 & 1 MG X 42 06/24/2020 12 :00:00 AM EST eCW1 ([facility]) Chantix Starting Month Markell 0.5 MG X 11 & 1 MG X 42 06/24/2020 12 :00:00 AM EST eCW1 ([facility]) Chantix Starting Month Markell 0.5 MG X 11 & 1 MG X 42 06/24/2020 12 :00:00 AM EST eCW1 ([facility])
[2021-03-13] MEDS ORDERED: BUPIVACAINE/EPIN 0.25% 30 ML VIAL As Ordered ONE (15:07)
[2021-03-13] MEDS ORDERED: TRANEXAMIC ACID 100 MG/ML 10ML VIAL As Ordered ONE (17:05)
[2021-03-13] MEDS ORDERED: ceFAZolin 2 GM/D5W 50 ML IV BAG (J0690 PER 500MG) As Ordered ONE (17:05)
[2021-03-13] MEDS ORDERED: dexameTHASONE 4 MG/ML 1ML VIAL (J1100 PER 1MG) As Ordered ONE (17:12)
[2021-03-13] MEDS ORDERED: propofoL 200 MG/20 ML VIAL As Ordered ONE (17:12)
[2021-03-13] MEDS ORDERED: fentaNYL 100 MCG/2 ML INJECTION (J3010) As Ordered ONE (17:12)
[2021-03-13] MEDS ORDERED: ROCURONIUM BROMIDE 50 MG/5 ML VIAL As Ordered ONE ×2 (17:12→17:59)
[2021-03-13] MEDS ORDERED: ONDANSETRON 4MG/2ML VIAL As Ordered ONE (17:12)
[2021-03-13] MEDS ORDERED: LIDOCAINE 2% 100MG/5ML SDV (FOR ANES.) As Ordered ONE (17:12)
[2021-03-13] MEDS ORDERED: HYDROmorphone HCL 2 MG/ML 1ML VIAL As Ordered ONE (17:12)
[2021-03-13] MEDS ORDERED: MIDAZOLAM INJ 2MG/2ML VIAL (J2250 PER 1MG) As Ordered ONE (17:12)
[2021-03-13] MEDS ORDERED: KETOROLAC 60MG 2ML VIAL As Ordered ONE (17:12)
[2021-03-13] MEDS ORDERED: SUGAMMADEX SODIUM 500 MG/5 ML VIAL (BRIDION) As Ordered ONE (20:06)
[2021-03-13] MEDS ORDERED: fentaNYL 100 MCG/2 ML INJECTION (J3010) IV PRN (22:15)
[2021-03-13] MEDS ORDERED: oxyCODONE 5MG TAB PO PRN (22:15)
[2021-03-13] MEDS ORDERED: LR 1,000 ML IV SCH (22:15)
[2021-03-13] MEDS ORDERED: KETOROLAC 30 MG/ML 1ML VIAL IV PRN (22:15)
[2021-03-13] MEDS ORDERED: ONDANSETRON 4MG/2ML VIAL IV PRN (22:15)
[2021-03-13 22:30] VITALS: BP 166/98
--- NOTE | 2021-03-14 07:27 | RO ---
OPERATIVE NOTE DATE OF OPERATION: 03/13/2021 TIME: 5:30 p.m. PREOPERATIVE DIAGNOSIS: Left distal triceps rupture. POSTOPERATIVE DIAGNOSIS: Left distal triceps rupture. NAME OF OPERATION: Left distal triceps repair. SURGEON: Checo Street MD SPECIAL EDUCATION PARA PROFESSIONAL: None. SUPERVISING ATTENDING: Checo Street MD FINDINGS: The patient had a distal triceps rupture at the interface of the distal tendon and olecranon to include the deep triceps musculature. 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 He extended his arm. He contracted his left triceps after blocking the object. He noticed acute weakness in his left arm extension at the elbow, spasms as well as pain to the left elbow. He presented to the [facility] emergency department which diagnosed him with olecranon bursitis. However, he did follow up with the orthopedic group 3-4 days later in my clinic and he was diagnosed with a left distal triceps rupture. He was indicated for the aforementioned surgery in order to establish function to include left arm extension at the elbow. ANESTHESIA: GETA. TOURNIQUET TIME: 117 minutes. ESTIMATED BLOOD LOSS: 40 mL. IV FLUIDS: Please see anesthesia report. IV ANTIBIOTICS: Please see anesthesia report. IMPLANTS: Arthrex. CULTURES: None. SPECIMENS: None. DESCRIPTION OF PROCEDURE: The patient was met in the preoperative holding area where the patient's operative extremity was signed, the patient's consent was confirmed to be correct, and the patient's identity was confirmed to be correct. The patient was then transferred to the operating theater where he was placed in a lateral decubitus position using a pegboard on a regular surgical flat-top bed. A safety strap secured the patient to the bed. All bony prominences were well padded. The bilateral lower extremities had SCDs placed. A timeout was called which confirmed the correct patient, correct operative extremity and correct consent. All staff were in agreement. I began the procedure by marking out the surgical incision which was a curvilinear incision to the medial aspect of the patient's olecranon measuring approximately 6 inches in length. It was longitudinal in line with the triceps tendon and distally along the ulnar border. The skin was incised sharply using a scalpel and meticulous hemostasis was performed. After incising the skin, I then created skin flaps on the lateral and medial sides in order to expose the triceps musculature. The triceps fascia was incised and reflected. At this point in time, I was able to visualize the distal triceps rupture including the deep head. The ends of the rupture were freshened using a scalpel and a rasp. Then I turned my attention to the distal triceps tendon repair. I prepared two bone sockets for the medial row on my distal triceps repair. The medial bone socket on the ulnar border was prepared with a 4.5 mm diameter drill which I later used for a 4.75 mm suture anchor. I drilled to a depth of 20 mm and the bone socket was tapped for future implantation of a 4.75 mm suture anchor. The preloaded FiberTape suture was fastened into the eyelet of a double-loaded 4.75 mm BioComposite SwiveLock C-anchor for use as a proximal anchor in the olecranon. I then inserted the anchor into the prepared bone socket until the anchor body made contact with the bone. I repeated these steps for the lateral proximal anchor using a different colored braided polyethylene tape-type suture. Using a free needle, I then passed the #2 braided polyethylene retention sutures from the previously placed suture anchors to the distal triceps in a mattress configuration approximately 2 cm proximal to the distal end of the tendon. I passed the braided polyethylene suture and the second colored similar suture tails proximal to the previously placed smaller braided polyethylene suture. I then tied the #2 braided polyethylene suture in a mattress configuration for my medial fixation. I then turned my attention to the lateral row of fixation. The 4.5 mm drill was used to create two additional sockets to a depth of 20 mm at the distal aspect of the triceps footprint. I then tapped the bone socket with a 4.75 mm tap. I then loaded one tail from each of the previously passed braided polyethylene sutures, one tail from the different colors braided polyethylene suture mattress into a 4.75 mm BioComposite suture anchor. I brought the eyelet of the implant to the edge of the bone socket and removed side from each braided polyethylene suture limb individually. I applied tension to the braided polyethylene suture so that the tissue was reduced and compressed against the bone. I then completely advanced the bulk tank driver into the bone socket beyond the first suture line until the anterior body contacts bone. I then evaluated the tensioned tissue. I repeated those previously mentioned steps for the remaining tape and suture tails. At this point in time, I had 12 braided polyethylene sutures which included braided polyethylene suture tape in a SpeedBridge configuration. The patient's elbow was then taken through a range of motion and the fixation appeared to be very stable. There was good compression against the modoc tendon insertion on the olecranon. I confirmed with fluoroscopy that my suture anchors were outside the elbow joint which was previously confirmed all the tacks were in place. At this point in time, I copiously irrigated all surgical incisions. I closed the triceps fascia using 0 Vicryl and closed the dermal layer using 2-0 Vicryl, closed the skin using a running 3-0 nylon suture. I then placed Xeroform over the surgical incision followed by prep gauze and Webril and Kaiden bandage after placing a posterior slab splint. In essence, the patient was placed in a well-padded posterior splint with the patient's at 60 degrees in full extension. The patient was then extubated without complication and transported to the postanesthesia care unit for a period. At this point in time, the patient will follow the triceps rehabilitative protocol. He will return to our clinic in six days for postoperative wound check and transition to a hinged elbow brace used with the appropriate rehabilitative protocol. The patient will be given postoperative pain medication at his pharmacy of choice likely [facility]. The patient will be educated of the aforementioned findings in the PACU. The patient will be nonweightbearing to the left upper extremity for 4-6 weeks.
--- NOTE | 2021-03-16 10:16 | REPVR ---
PROCEDURE INFORMATION: Exam: FL Fluoroscopy, Up to 1 Hour Physician Time; Radiologist Not Present For Fluoroscopy Exam date and time: 03/13/2021 7:11 PM Age: 50 years old Clinical indication: Condition or disease; Condition/disease: Left tricep tendon distal rupture TECHNIQUE: Imaging protocol: Fluoroscopy , up to 1 hour physician or other qualified health child care teacher time. This radiologist did not supervise this procedure. Exam supervised by facility personnel. Report for radiation dosage reporting and documentation only. COMPARISON: No relevant prior studies available. RADIATION DOSE METRICS: Fluoroscopy time (seconds): 23.7 seconds Number of fluoro spot images: Two Reference air kerma (REE): Not provided FINDINGS: Procedural imaging: Elbow imaging Notes: Fluoroscopy supervised by facility personnel. See also separate procedure report. IMPRESSION: Fluoroscopy dosage documentation. See also separate procedure notes. Electronically signed by: Jarred Reyes On 03/13/2021 20:40:25 PM
== END 2021-03-13 22:45 | disposition home or self-care (01) ==
LOC: M SDC 14:04
PROVIDERS: ATTEND Orthopaedic Surgery
DX: S46.392A Other injury of muscle, fascia and tendon of triceps, left arm, initial encounter (principal); X58.XXXA Exposure to other specified factors, initial encounter; Y92.89 Other specified places as the place of occurrence of the external cause; Y93.9 Activity, unspecified; Y99.9 Unspecified external cause status; E78.49 Other hyperlipidemia; I10 Essential (primary) hypertension; K21.9 Gastro-esophageal reflux disease without esophagitis; F17.218 Nicotine dependence, cigarettes, with other nicotine-induced disorders; Z79.899 Other long term (current) drug therapy
CPT/HCPCS: 24342; 76000; C1713; J0690; J1100; J1170; J1885; J2250; J2405; J3010

== ENCOUNTER → 2022-10-26 | Outpatient (CLI) | payer OTHER ==
[~2022-10-26] MED LIST changes: -LR 1,000 ML IV ONE; -OMEP-221 PO; +OMEP40CA5 PO
== END ==
LOC: M RAD 15:00
PROVIDERS: ATTEND Physician Assistant
DX: Z12.2 Encounter for screening for malignant neoplasm of respiratory organs (principal); F17.210 Nicotine dependence, cigarettes, uncomplicated; Z53.9 Procedure and treatment not carried out, unspecified reason

== ENCOUNTER → 2022-11-15 | Outpatient (REF) | payer OTHER ==
[2022-11-15 12:48] LABS: BASO # 0.1 10^3/uL (0.0-0.2); BASO % 0.5 % (0.0-1.0); EOS # 0.3 10^3/uL (0.0-0.5); EOS % 2.2 % (0.0-3.0); HEMATOCRIT 49.2 % (42.0-52.0); HEMOGLOBIN 16.4 g/dl (13.5-17.5); LYMPH # 1.5 10^3/uL (1.5-5.0); LYMPH % 10.7 % (24.0-44.0); MEAN CORPUSCULAR HEMOGLOBIN 30.2 pg (27.0-33.0); MEAN CORPUSCULAR HGB CONC 33.3 g/dl (32.0-36.5); MEAN CORPUSCULAR VOLUME 90.6 fl (80.0-96.0); MONO # 0.8 10^3/uL (0.0-0.8); MONO % 5.9 % (2.0-8.0); NEUTROPHILS # 11.3 10^3/uL (1.5-8.5); NEUTROPHILS % 80.3 % (36.0-66.0); PLATELET COUNT, AUTOMATED 284 10^3/uL (150-450); RED BLOOD COUNT 5.43 10^6/uL (4.30-6.10); WHITE BLOOD COUNT 14.1 10^3/uL (4.0-10.0)
[2022-11-15 13:12] LABS: ALBUMIN 3.8 G/DL (3.2-5.2); ALKALINE PHOSPHATASE 95 U/L (46-116); ALT/SGPT 24 U/L (7.0-40); AST/SGOT 17 U/L (<34); BILIRUBIN,TOTAL 0.7 MG/DL (0.3-1.2); BLOOD UREA NITROGEN 12 MG/DL (9-23); CALCIUM LEVEL 9.6 MG/DL (8.5-10.1); CARBON DIOXIDE LEVEL 27 MMOL/L (20-31); CHLORIDE LEVEL 104 MMOL/L (98-107); CHOLESTEROL LEVEL 221 MG/DL (<200); CHOLESTEROL RISK RATIO 3.88 (<5); CREATININE FOR GFR 0.82 MG/DL (0.70-1.30); GLOMERULAR FILTRATION RATE > 60.0 (>56); GLUCOSE, FASTING 99 MG/DL (60-100); HDL CHOLESTEROL 56.9 MG/DL (>40); LDL CHOLESTEROL 143.3 MG/DL (<100); NON-HDL-C 164.1 MG/DL; POTASSIUM SERUM 3.6 MMOL/L (3.5-5.1); SODIUM LEVEL 140 MMOL/L (136-145); TOTAL PROTEIN 6.8 G/DL (5.7-8.2); TRIGLYCERIDES LEVEL 104 MG/DL (<150)
[2022-11-15 13:28] LABS: HEMOGLOBIN A1c 5.4 % (4.0-6.0)
== END ==
LOC: M SFHCADAM 07:48
PROVIDERS: ATTEND Physician Assistant
DX: I10 Essential (primary) hypertension (principal); E78.5 Hyperlipidemia, unspecified; F17.210 Nicotine dependence, cigarettes, uncomplicated; Z12.5 Encounter for screening for malignant neoplasm of prostate; Z12.11 Encounter for screening for malignant neoplasm of colon; Z13.1 Encounter for screening for diabetes mellitus

== ENCOUNTER → 2022-12-09 | Outpatient (CLI) | payer OTHER | LOC: M SOG 15:02 | PROVIDERS: ATTEND Orthopaedic Surgery | DX: M25.511 Pain in right shoulder (principal) ==

== ENCOUNTER → 2022-12-31 | Outpatient (CLI) | payer OTHER | LOC: M PLAIMG 06:49 | PROVIDERS: ATTEND Orthopaedic Surgery | DX: M25.511 Pain in right shoulder (principal); M75.41 Impingement syndrome of right shoulder; M25.711 Osteophyte, right shoulder; M19.011 Primary osteoarthritis, right shoulder; M25.411 Effusion, right shoulder; M77.8 Other enthesopathies, not elsewhere classified ==

== ENCOUNTER 2023-02-03 10:33 | Day surgery (SDC) | payer OTHER ==
[~2023-02-03] VITALS: Ht 177.8 cm; Wt 85.3 kg
[~2023-02-03 10:33] MED LIST changes: +ATOR1TAB21; +NS 1,000 ML IV ONE
[2023-02-03] MEDS ORDERED: propofoL 200 MG/20 ML VIAL As Ordered ONE ×2 (10:59→12:04)
[2023-02-03] MEDS ORDERED: LIDOCAINE 2% 100MG/5ML SDV (FOR ANES.) As Ordered ONE (10:59)
[2023-02-03 12:06] VITALS: TEMP 96.9
[2023-02-03 12:31] VITALS: BP 119/77; O2SAT 100
== END 2023-02-03 12:37 | disposition home or self-care (01) ==
LOC: M OPP 10:33
PROVIDERS: ATTEND Surgery
DX: Z12.11 Encounter for screening for malignant neoplasm of colon (principal); D12.6 Benign neoplasm of colon, unspecified; F17.200 Nicotine dependence, unspecified, uncomplicated; Z79.02 Long term (current) use of antithrombotics/antiplatelets; Z79.899 Other long term (current) drug therapy

== ENCOUNTER → 2023-03-03 | Outpatient (REF) | payer OTHER ==
[~2023-03-03] MED LIST changes: -NS 1,000 ML IV ONE
[2023-03-03 12:55] LABS: ALBUMIN 3.8 G/DL (3.2-5.2); ALKALINE PHOSPHATASE 79 U/L (46-116); ALT/SGPT 31 U/L (7.0-40); AST/SGOT 25 U/L (<34); BILIRUBIN,TOTAL 1.1 MG/DL (0.3-1.2); BLOOD UREA NITROGEN 11 MG/DL (9-23); CALCIUM LEVEL 9.9 MG/DL (8.5-10.1); CARBON DIOXIDE LEVEL 30 MMOL/L (20-31); CHLORIDE LEVEL 103 MMOL/L (98-107); CHOLESTEROL LEVEL 237 MG/DL (<200); CREATININE FOR GFR 0.75 MG/DL (0.70-1.30); GLOMERULAR FILTRATION RATE > 60.0 (>56); GLUCOSE, FASTING 98 MG/DL (60-100); POTASSIUM SERUM 3.9 MMOL/L (3.5-5.1); SODIUM LEVEL 140 MMOL/L (136-145); TOTAL PROTEIN 6.9 G/DL (5.7-8.2); TRIGLYCERIDES LEVEL 72 MG/DL (<150)
[2023-03-03 13:40] LABS: CHOLESTEROL RISK RATIO 3.04 (<5); HDL CHOLESTEROL 77.8 MG/DL (>40); LDL CHOLESTEROL 144.8 MG/DL (<100); NON-HDL-C 159.2 MG/DL
== END ==
LOC: M SFHCADAM 08:06
PROVIDERS: ATTEND Physician Assistant
DX: I10 Essential (primary) hypertension (principal); E78.5 Hyperlipidemia, unspecified

== ENCOUNTER → 2023-08-17 | Outpatient (CLI) | payer BC | LOC: M RAD 17:26 | PROVIDERS: ATTEND Physician Assistant | DX: F17.210 Nicotine dependence, cigarettes, uncomplicated (principal); Z53.9 Procedure and treatment not carried out, unspecified reason ==

== ENCOUNTER → 2023-09-20 | Outpatient (CLI) | payer BC | LOC: M RAD 16:30 | PROVIDERS: ATTEND Physician Assistant | DX: Z12.2 Encounter for screening for malignant neoplasm of respiratory organs (principal); F17.210 Nicotine dependence, cigarettes, uncomplicated; J98.11 Atelectasis; K80.20 Calculus of gallbladder without cholecystitis without obstruction ==

== ENCOUNTER 2023-11-09 22:31 | Emergency (ER) | payer BC ==
[~2023-11-09] VITALS: Ht 177.8 cm; Wt 91.0 kg
[2023-11-09 23:02] LABS: BASO # 0.1 10^3/uL (0.0-0.2); BASO % 0.8 % (0.0-1.0); EOS # 0.3 10^3/uL (0.0-0.5); EOS % 3.3 % (0.0-3.0); LYMPH # 2.1 10^3/uL (1.5-5.0); LYMPH % 23.5 % (24.0-44.0); MEAN CORPUSCULAR HEMOGLOBIN 30.5 pg (27.0-33.0); MEAN CORPUSCULAR VOLUME 89.5 fl (80.0-96.0); MONO # 0.7 10^3/uL (0.0-0.8); NEUTROPHILS # 5.7 10^3/uL (1.5-8.5); NEUTROPHILS % 64.2 % (36.0-66.0); PLATELET COUNT, AUTOMATED 221 10^3/uL (150-450); RED BLOOD COUNT 5.25 10^6/uL (4.30-6.10); WHITE BLOOD COUNT 8.9 10^3/uL (4.0-10.0)
[2023-11-09 23:31] LABS: CK-MB VALUE MASS 2.1 NG/ML (<3.6)
[2023-11-09 23:32] LABS: BLOOD UREA NITROGEN 11 MG/DL (9-23); CALCIUM LEVEL 9.1 MG/DL (8.5-10.1); CARBON DIOXIDE LEVEL 22 MMOL/L (20-31); CHLORIDE LEVEL 106 MMOL/L (98-107); CREATININE FOR GFR 0.67 MG/DL (0.70-1.30); GLOMERULAR FILTRATION RATE > 60.0 (>56); GLUCOSE, FASTING 119 MG/DL (60-100); POTASSIUM SERUM 3.3 MMOL/L (3.5-5.1); SODIUM LEVEL 136 MMOL/L (136-145)
[2023-11-09 23:47] LABS: CPK CREATINE PHOSPHOKINASE 212 U/L (46-171); MB/CK RELATIVE INDEX 0.99 (< OR =4)
[2023-11-10] MEDS: NS 500 ML IV ONE (01:04)
[2023-11-10] MEDS: FAMOTIDINE 20MG/2ML VIAL IVP ONE (01:05)
[2023-11-10 02:00] VITALS: BP 157/94; TEMP 98.4; O2SAT 98
== END 2023-11-10 02:10 | disposition home or self-care (01) ==
LOC: M ED 22:31
DX: R07.89 Other chest pain (principal); K21.9 Gastro-esophageal reflux disease without esophagitis; F17.200 Nicotine dependence, unspecified, uncomplicated

== ENCOUNTER → 2024-11-13 | Outpatient (REF) | payer BC ==
[2024-11-13 15:28] LABS: ALT/SGPT 28 U/L (7.0-40); AST/SGOT 30 U/L (<34); CALCIUM LEVEL 9.6 MG/DL (8.5-10.1); CARBON DIOXIDE LEVEL 29 MMOL/L (20-31); CHLORIDE LEVEL 103 MMOL/L (98-107); CHOLESTEROL LEVEL 166 MG/DL (<200); CHOLESTEROL RISK RATIO 2.61 (<5); CREATININE FOR GFR 0.80 MG/DL (0.70-1.30); GLOMERULAR FILTRATION RATE > 90.0 (>56); LDL CHOLESTEROL 85.3 MG/DL (<100); NON-HDL-C 102.5 MG/DL; POTASSIUM SERUM 3.6 MMOL/L (3.5-5.1); PSA SCREENING 0.53 NG/ML (< 4.00); SODIUM LEVEL 141 MMOL/L (136-145); TRIGLYCERIDES LEVEL 86 MG/DL (<150)
[2024-11-13 15:34] LABS: PLATELET COUNT, AUTOMATED 264 10^3/uL (150-450)
[2024-11-13 16:14] LABS: ESTIMATED AVERAGE GLUCOSE 108.0 MG/DL (60-110)
== END ==
LOC: M SFHCADAM 08:19
PROVIDERS: ATTEND Physician Assistant
DX: I10 Essential (primary) hypertension (principal); K21.9 Gastro-esophageal reflux disease without esophagitis; F17.210 Nicotine dependence, cigarettes, uncomplicated; E78.5 Hyperlipidemia, unspecified; Z12.5 Encounter for screening for malignant neoplasm of prostate; Z13.1 Encounter for screening for diabetes mellitus
CPT/HCPCS: 80053; 80061; 83036; 85027; G0103

== ENCOUNTER → 2024-12-17 | Outpatient (CLI) | payer BC | LOC: M RAD 15:38 | PROVIDERS: ATTEND Physician Assistant | DX: Z87.891 Personal history of nicotine dependence (principal) ==

== ENCOUNTER → 2025-01-18 | Outpatient (CLI) | payer BC | LOC: M RAD 10:08 | PROVIDERS: ATTEND Physician Assistant | DX: K82.8 Other specified diseases of gallbladder (principal) ==